=== PATIENT | female | born 1950 ===

== ENCOUNTER 2017-09-03 19:18 | Inpatient (IN) | payer MEDICARE ==
[2017-09-03] MEDS ORDERED: Ciprofloxacin 400mg/200ml D5W 400 MG/200 ML BAG IVPB STA (19:53)
[2017-09-03] MEDS ORDERED: Sodium Chloride 0.9% 1,000 ML IV ONE (19:53)
[2017-09-03] MEDS ORDERED: metroNIDAZOLE IV 500 mg/100 ml 500 MG/100 ML BAG IVPB STA (19:53)
--- NOTE | 2017-09-03 19:53 | C.PDOC ---
History Of Present Illness 67 y/o female presents to the ED complaining of abdominal pain, on and off for 1 month. No associated fever or chills. Pain is described as crampy, rated 4/ 10. Denies any vomiting or diarrhea. Of note, patient had a CT scan done earlier today and was referred to the ED by PMD due to findings. Time Seen by Provider: 09/03/17 19:50 Chief Complaint (Nursing): Abdominal Pain History Per: Patient History/Exam Limitations: no limitations Onset/Duration Of Symptoms: Intermittent Episodes Current Symptoms Are (Timing): Still Present Context: Other Severity: Mild Pain Scale Rating Of: 4 Location Of Pain/Discomfort: Epigastric Radiation Of Pain To:: None Quality Of Discomfort: Cramping Exacerbating Factors: None Alleviating Factors: None Last Bowel Movement: Yesterday Recent travel outside of the [place]: No Additional History Per: Family Abnormal Vaginal Bleeding: No Past Medical History Reviewed: Historical Data, Nursing Documentation, Vital Signs Vital Signs: Last Vital Signs Temp 98.3 F 09/03/17 19:34 Pulse 77 09/03/17 19:34 Resp 20 09/03/17 19:34 BP 112/74 09/03/17 19:34 Pulse Ox 98 09/03/17 21:08 - Medical History PMH: Asthma Other PMH: peripheral vascular disease Family History: States: No Known Family Hx - Social History Hx Tobacco Use: No Hx Alcohol Use: No Hx Substance Use: No - Immunization History Hx Tetanus Toxoid Vaccination: No Hx Influenza Vaccination: No Hx Pneumococcal Vaccination: No Review Of Systems Constitutional: Negative for: Fever, Chills Gastrointestinal: Positive for: Abdominal Pain Physical Exam - Physical Exam Appears: Non-toxic, No Acute Distress Skin: Warm, Dry Head: Normacephalic Eye(s): bilateral: Normal Inspection Oral Mucosa: Moist Neck: Trachea Midline, Supple Chest: Symmetrical Cardiovascular: Rhythm Regular Respiratory: No Rales, No Rhonchi, No Wheezing Gastrointestinal/Abdominal: Soft, Tenderness (moderate mid-epigastric diffuse tenderness), No Distention, No Guarding, No Rebound Back: Normal Inspection Extremity: Normal ROM Extremity: Bilateral: Atraumatic, Normal Color And Temperature, Normal ROM Pulses: Left Dorsalis Pedis: Normal, Right Dorsalis Pedis: Normal Neurological/Psych: Oriented x3 Gait: Steady ED Course And Treatment - Laboratory Results Result Diagrams: 09/03/17 20:13 09/03/17 20:13 ECG: Interpreted By Me, Viewed By Me ECG Rhythm: Sinus Rhythm (73), Nonspecific Changes O2 Sat by Pulse Oximetry: 98 Pulse Ox Interpretation: Normal Progress Note: Patient had CT scan w/ contrast today showing acute diverticulitis with moderate perforation. Case discussed with Dr. Flores, patient will be admitted Disposition Discussed With Dr.: Reggie Flores Comment: accepted the pt on his service and took over the care at 8 PM Doctor Will See Patient In The: ED Counseled Patient/Family Regarding: Studies Performed, Diagnosis - Disposition Disposition: HOSPITALIZED Disposition Time: 19:51 Condition: FAIR Forms: [employer] (Faroese) - POA Present On Arrival: None - Clinical Impression Clinical Impression: Abdominal pain, Diverticulitis - Scribe Statement The provider has reviewed the documentation as recorded by the Scribe (Jen Hopper) Provider Attestation: All medical record entries made by the Scribe were at my direction and personally dictated by me. I have reviewed the chart and agree that the record accurately reflects my personal performance of the history, physical exam, medical decision making, and the department course for this patient. I have also personally directed, reviewed, and agree with the discharge instructions and disposition. Decision To Admit - Pt Status Changed To: Hospital Disposition Of: Inpatient - Admit Certification Admit to Inpatient:: After my assessment, the patient will require hospitalization for at least two midnights. This is because of the severity of symptoms shown, intensity of services needed, and/or the medical risk in this patient being treated as an outpatient. - InPatient: Physician Admission Certification:: After my assessment, the patient will require hospitalization for at least two midnights. This is because of the severity of symptoms shown, intensity of services needed, and/or the medical risk in this patient being treated as an outpatient. - . Bed Request Type: Regular Admitting Physician: Reggie Flores Patient Diagnosis: Abdominal pain, Diverticulitis
[2017-09-03 20:17] LABS: BASO # 0.1 K/uL (0.0-0.2); BASO % 1.2 % (0.0-2.0); EOS # 0.8 K/uL (0.0-0.7); EOS % 9.7 % (0.0-4.0); HEMOGLOBIN 12.2 g/dL (11.0-16.0); LYMPH # 1.7 K/uL (1.0-4.3); MEAN CELL VOLUME 89.6 fL (81.0-99.0); MEAN CORPUSCULAR HEMOGLOBIN 30.8 pg (27.0-31.0); MEAN CORPUSCULAR HGB CONC 34.4 g/dL (33.0-37.0); MEAN PLATELET VOLUME 7.8 fL (7.2-11.7); MONO # 0.8 K/uL (0.0-0.8); MONO % 8.9 % (0.0-10.0); NEUT # 5.2 K/uL (1.8-7.0); NEUT % 60.2 % (50.0-75.0); NRBC % 0.1 % (0.0-2.0); RBC 3.95 Mil/uL (3.80-5.20); RED CELL DISTRIBUTION WIDTH 12.8 % (11.5-14.5); WHITE BLOOD COUNT 8.7 K/uL (4.8-10.8)
[2017-09-03 20:25] LABS: INR 1.1; PROTHROMBIN TIME 12.2 SECONDS (9.7-12.2)
[2017-09-03 20:29] LABS: ALB/GLOB RATIO 1.1 (1.0-2.1); ALBUMIN 3.8 g/dL (3.5-5.0); ALT/SGPT 26 U/L (9-52); AST/SGOT 29 U/L (14-36); BLOOD UREA NITROGEN 10 mg/dL (7-17); CALCIUM 9.1 mg/dl (8.6-10.4); GFR AFRICAN-AMERICAN > 60; GFR NON-AFRICAN AMERICAN > 60; LIPASE 57 U/L (23-300)
[2017-09-03] MEDS ORDERED: metroNIDAZOLE IV 500 mg/100 ml 500 MG/100 ML BAG ONE (20:30)
[2017-09-03] MEDS ORDERED: Oxycodone/Acetaminophen 5/325 mg Tab PO PRN (21:23)
[2017-09-03] MEDS ORDERED: Ciprofloxacin 400mg/200ml D5W 400 MG/200 ML BAG IVPB ONE (21:38)
[2017-09-03] MEDS ORDERED: metroNIDAZOLE IV 500 mg/100 ml 500 MG/100 ML BAG IVPB SCH (22:00)
[2017-09-03] MEDS: Clindamycin 300 MG in Sodium Chloride 0.9% 50 ML IVPB SCH (22:29)
[2017-09-03 23:19] LABS: SQUAMOUS EPITHIAL 5 /hpf (0-5); URINE BILIRUBIN NEGATIVE (NEGATIVE); URINE BLOOD NEGATIVE (NEGATIVE); URINE CLARITY Clear (Clear); URINE COLOR Yellow (YELLOW); URINE GLUCOSE (UA) NORMAL (Normal); URINE LEUKOCYTE ESTERASE 3+ Leu/uL (Negative); URINE PROTEIN NEGATIVE (NEGATIVE); URINE UROBILINOGEN NORMAL mg/dL (0.2-1.0)
[2017-09-04 00:08] VITALS: RESP 20
[2017-09-04] MEDS: Clindamycin 300 MG in Sodium Chloride 0.9% 50 ML IVPB SCH (05:39)
[2017-09-04 07:38] LABS: ALB/GLOB RATIO 1.1 (1.0-2.1); ALBUMIN 3.4 g/dL (3.5-5.0); ALT/SGPT 15 U/L (9-52); AST/SGOT 27 U/L (14-36); BLOOD UREA NITROGEN 8 mg/dL (7-17); CALCIUM 8.1 mg/dl (8.6-10.4); GFR AFRICAN-AMERICAN > 60; GFR NON-AFRICAN AMERICAN > 60; LIPASE 46 U/L (23-300)
[2017-09-04 07:43] LABS: BASO # 0.1 K/uL (0.0-0.2); EOS # 0.8 K/uL (0.0-0.7); EOS % 11.3 % (0.0-4.0); HEMOGLOBIN 10.9 g/dL (11.0-16.0); LYMPH # 1.2 K/uL (1.0-4.3); LYMPH % 16.4 % (20.0-40.0); MEAN CELL VOLUME 89.9 fL (81.0-99.0); MEAN CORPUSCULAR HEMOGLOBIN 30.6 pg (27.0-31.0); MEAN CORPUSCULAR HGB CONC 34.1 g/dL (33.0-37.0); MEAN PLATELET VOLUME 8.2 fL (7.2-11.7); MONO # 0.7 K/uL (0.0-0.8); MONO % 9.9 % (0.0-10.0); NEUT # 4.5 K/uL (1.8-7.0); NEUT % 61.4 % (50.0-75.0); NRBC % 0.1 % (0.0-2.0); RBC 3.54 Mil/uL (3.80-5.20); WHITE BLOOD COUNT 7.3 K/uL (4.8-10.8)
--- NOTE | 2017-09-04 07:56 | RAD ---
HISTORY: Diverticulosis COMPARISON: None TECHNIQUE: Chest PA and lateral FINDINGS: LUNGS: No focal consolidation is seen. PLEURA: No pleural effusion is identified. CARDIOVASCULAR: Heart size is within normal limits. OSSEOUS STRUCTURES: Degenerative changes noted of the spine. Mild hypertrophic degenerative changes noted left acromioclavicular joint. VISUALIZED UPPER ABDOMEN: Unremarkable. OTHER FINDINGS: None. IMPRESSION: No acute cardiopulmonary process seen.
[2017-09-04] MEDS: Pantoprazole 40 mg EC Tab PO SCH (09:43)
[2017-09-04] MEDS ORDERED: POTASSIUM CH IV SCH (10:00)
[2017-09-04] MEDS ORDERED: D5 IV SCH (10:00)
[2017-09-04] MEDS ORDERED: [UNRECOGNIZED DRUG - OTHER] IV SCH (10:00)
[2017-09-04] MEDS ORDERED: D5 IV ONE (10:00)
[2017-09-04] MEDS ORDERED: [UNRECOGNIZED DRUG - OTHER] IV ONE (10:00)
[2017-09-04] MEDS ORDERED: POTASSIUM CH IV ONE (10:00)
[2017-09-04] MEDS ORDERED: Potassium Ch 20mEq in D5-1/2NS 1,000 ML IV ONE (10:30)
--- NOTE | 2017-09-04 11:31 | CP.PCM.CON ---
History of Present Illness - History of Present Illness History of Present Illness: INFECTIOUS DISEASE CONSULT; HPI: 67 y/o female presents to the ED complaining of abdominal pain, on and off for 1 month. No associated fever or chills. Pain is described as crampy, rated 4/ 10. Denies any vomiting or diarrhea. Of note, patient had a CT scan done earlier today and was referred to the ED by PMD due to findings. CT ABDOMEN /PELVIS SHOWED ACUTE DIVERTICULITIS/MODERATE PERFORATION. PT ALLERGIC TO PCN AND STARTED ON IV CLEOCIN BY PMD INFECTIOUS DSEASE CONSULT REQUESTED BY DR JONES FOR ACUTE DIVERTICULITIS/ AND MODERATE PERFORATON PMH: Asthma Other PMH: peripheral vascular disease Family History: States: No Known Family Hx - Social History Hx Tobacco Use: No Hx Alcohol Use: No Hx Substance Use: No - Immunization History Hx Tetanus Toxoid Vaccination: No Hx Influenza Vaccination: No Hx Pneumococcal Vaccination: No. ALLERGY; PENCILLIN. Review of Systems - Constitutional Constitutional: absent: Chills, Fever - EENT Eyes: absent: Change in Vision, Floaters, Photophobia Nose/Mouth/Throat: absent: Mouth Lesions, Odynophagia - Cardiovascular Cardiovascular: absent: Chest Pain, Leg Edema - Respiratory Respiratory: absent: Cough - Gastrointestinal Gastrointestinal: Abdominal Pain, Constipation. absent: Heartburn, Melena, Vomiting - Genitourinary Genitourinary: absent: Difficulty Urinating, Freq UTI - Neurological Neurological: absent: Headaches - Hematologic/Lymphatic Hematologic: As Per HPI. absent: Easy Bleeding, Easy Bruising, Lymphadenopathy Past Patient History - Past Social History Smoking Status: Never Smoked - CARDIAC Hx Peripheral Vascular Disease: Yes - PULMONARY Hx Asthma: Yes - MUSCULOSKELETAL/RHEUMATOLOGICAL Hx Falls: No - PSYCHIATRIC Hx Substance Use: No Meds Allergies/Adverse Reactions: Allergies Allergy/AdvReac Type Severity Reaction Status Date / Time Penicillins Allergy Verified 09/03/17 19:38 - Medications Medications: Current Medications Albuterol/Ipratropium (Duoneb 3 Mg/0.5 Mg (3 Ml) Ud) 3 ml INH RQ6 PRN PRN Reason: Shortness of Breath Heparin Sodium (Porcine) (Heparin) 5,000 units SC Q12 [facility] Last Admin: 09/04/17 09:42 Dose: 5,000 units Clindamycin Phosphate 300 mg/ (Sodium Chloride) 52 mls @ 104 mls/hr IVPB Q8 [facility] PRN Reason: Protocol Last Admin: 09/04/17 05:39 Dose: 104 mls/hr Potassium Chloride/Dextrose/Sod Cl (Potassium Chl 20 Meq In D5-1/2ns) 1,000 mls @ 100 mls/hr IV .Q10H ONE Stop: 09/04/17 20:29 Last Admin: 09/04/17 10:37 Dose: 100 mls/hr Montelukast Sodium (Singulair) 10 mg PO HS [facility] Last Admin: 09/03/17 22:00 Dose: 10 mg Oxycodone/Acetaminophen (Percocet 5/325 Mg Tab) 1 tab PO Q6H PRN PRN Reason: Pain, severe (8-10) Stop: 09/06/17 21:24 Pantoprazole Sodium (Protonix Ec Tab) 40 mg PO DAILY [facility] Last Admin: 09/04/17 09:43 Dose: 40 mg Physical Exam - Constitutional Appears: No Acute Distress - Head Exam Head Exam: NORMAL INSPECTION - Eye Exam Eye Exam: EOMI, PERRL. absent: Scleral icterus - ENT Exam ENT Exam: Normal Oropharynx - Neck Exam Neck exam: Positive for: Normal Inspection - Respiratory Exam Respiratory Exam: Clear to Auscultation Bilateral - Cardiovascular Exam Cardiovascular Exam: REGULAR RHYTHM, +S1, +S2 - GI/Abdominal Exam GI & Abdominal Exam: Distended (MILDLY), Hypoactive Bowel Sounds, Soft. absent : Firm - Extremities Exam Extremities exam: Positive for: pedal pulses present. Negative for: calf tenderness, pedal edema - Neurological Exam Neurological exam: Alert, CN II-XII Intact, Oriented x3, Reflexes Normal - Psychiatric Exam Psychiatric exam: Normal Mood - Skin Skin Exam: Normal Color, Warm Results - Vital Signs Recent Vital Signs: Last Vital Signs Temp 98.1 F 09/04/17 07:00 Pulse 74 09/04/17 07:00 Resp 20 09/04/17 07:00 BP 103/65 09/04/17 07:00 Pulse Ox 98 09/04/17 07:00 - Labs Result Diagrams: 09/04/17 07:04 09/04/17 07:04 Labs: Laboratory Results - last 24 hr 09/03/17 09/03/17 09/03/17 20:13 20:13 20:13 WBC 8.7 RBC 3.95 Hgb 12.2 Hct 35.4 MCV 89.6 MCH 30.8 MCHC 34.4 RDW 12.8 Plt Count 349 MPV 7.8 Neut % (Auto) 60.2 Lymph % (Auto) 20.0 Sabine % (Auto) 8.9 Eos % (Auto) 9.7 H Baso % (Auto) 1.2 Neut # (Auto) 5.2 Lymph # (Auto) 1.7 Sabine # (Auto) 0.8 Eos # (Auto) 0.8 H Baso # (Auto) 0.1 PT 12.2 INR 1.1 APTT 37 H Sodium 145 Potassium 3.4 L Chloride 104 Carbon Dioxide 31 H Anion Gap 14 BUN 10 Creatinine 0.6 L Est GFR ( Amer) > 60 Est GFR (Non-Af Amer) > 60 Random Glucose 88 Calcium 9.1 Total Bilirubin 0.4 AST 29 ALT 26 Alkaline Phosphatase 103 Total Protein 7.2 Albumin 3.8 Globulin 3.4 Albumin/Globulin Ratio 1.1 Lipase 57 Urine Color Urine Clarity Urine pH Ur Specific Tolar Urine Protein Urine Glucose (UA) Urine Ketones Urine Blood Urine Nitrate Urine Bilirubin Urine Urobilinogen Ur Leukocyte Esterase Urine WBC (Auto) Urine RBC (Auto) Ur Squamous Epith Cells 09/03/17 09/04/17 09/04/17 23:02 07:04 07:04 WBC 7.3 RBC 3.54 L Hgb 10.9 L Hct 31.8 L MCV 89.9 MCH 30.6 MCHC 34.1 RDW 13.0 Plt Count 296 MPV 8.2 Neut % (Auto) 61.4 Lymph % (Auto) 16.4 L Sabine % (Auto) 9.9 Eos % (Auto) 11.3 H Baso % (Auto) 1.0 Neut # (Auto) 4.5 Lymph # (Auto) 1.2 Sabine # (Auto) 0.7 Eos # (Auto) 0.8 H Baso # (Auto) 0.1 PT INR APTT Sodium 143 Potassium 3.7 Chloride 110 H Carbon Dioxide 26 Anion Gap 11 BUN 8 Creatinine 0.6 L Est GFR ( Amer) > 60 Est GFR (Non-Af Amer) > 60 Random Glucose 79 Calcium 8.1 L Total Bilirubin 0.3 AST 27 ALT 15 Alkaline Phosphatase 83 Total Protein 6.4 Albumin 3.4 L Globulin 3.0 Albumin/Globulin Ratio 1.1 Lipase 46 Urine Color Yellow Urine Clarity Clear Urine pH 6.0 Ur Specific Tolar 1.019 Urine Protein Negative Urine Glucose (UA) Normal Urine Ketones Negative Urine Blood Negative Urine Nitrate Negative Urine Bilirubin Negative Urine Urobilinogen Normal Ur Leukocyte Esterase 3+ H Urine WBC (Auto) 34 H Urine RBC (Auto) < 1 Ur Squamous Epith Cells 5 - Imaging and Cardiology Chest x-ray Status: Report reviewed by me (NAD.) Assessment & Plan (1) Abdominal pain Status: Acute (2) Diverticulitis Assessment and Plan: PANCULTURE. DC IV CLEOCIN. START IV AZACTAM 1GM IVPB Q 8HRLY . 09/04/17. ADD FLAGYL 500MG IVPB Q 8HRLY 09/04/17. ADD IV VANCOMYCIN 1.25GM IVPB Q 24HRLY 09/04/17 NPO PER PMD. WILL TRY TO GET CT ABDOMEN AND PELVIS REPORT .OFFICIAL. Status: Acute
[2017-09-04] MEDS: metroNIDAZOLE IV 500 mg/100 ml 500 MG/100 ML BAG IVPB SCH ×2 (12:26→21:00)
[2017-09-04] MEDS: Aztreonam 1 GM in Sodium Chloride 0.9% 100 ML IVPB SCH ×2 (13:00→20:25)
--- NOTE | 2017-09-04 14:40 | CARD ---
APPROVED REPORT EKG Measurement Heart [id number] <Conclusion> Normal sinus rhythm Incomplete right bundle branch block Possible Inferior infarct, age undetermined Abnormal ECG
[2017-09-04] MEDS: Albuterol-Ipratrop 3 mg / 0.5 (3 ml) UD INH PRN (16:45)
[2017-09-04] MEDS: guaiFENesin DM 100 mg-10 mg/5 ml UD PO PRN (21:33)
[2017-09-05] MEDS: metroNIDAZOLE IV 500 mg/100 ml 500 MG/100 ML BAG IVPB SCH ×3 (03:00→21:17)
[2017-09-05] MEDS: Aztreonam 1 GM in Sodium Chloride 0.9% 100 ML IVPB SCH ×3 (03:00→22:45)
--- NOTE | 2017-09-05 06:56 | HP ---
HISTORY OF PRESENT ILLNESS: The patient is a 66-year-old female with history of asthma, hypertension, and patient was seen by me a week ago, and was complaining of some abdominal pain, mainly in the left side of the abdomen in the left lower quadrant. Also, the patient was complaining of anorexia. The patient was evaluated, and was sent the patient to have a CAT scan done. However, the patient has delayed to do the CAT scan due to some personal problems. So, yesterday, the patient has received the result of CAT scan which has demonstrated that the patient had an acute diverticulitis and also some perforations with no enough fluid for drainage as per the CAT scan, so the patient was called and advised to go to the emergency room for admission which the patient had done, and I have to look into and refer the ER physician. The patient was admitted immediately. ALLERGIES: THE PATIENT IS ALLERGIC TO PENICILLIN. MEDICATION: The patient was on medication like Montelukast, and also, the patient was on Cipro and Flagyl p.o., and also the patient was on albuterol nebulizer. SOCIAL HISTORY: The patient has no history of smoking or alcohol abuse, and the patient is , lives with her . FAMILY HISTORY: The patient has no inherited disease. REVIEW OF SYSTEMS: Respiratory system: The patient is complaining of positive cough with yellowish sputum. Cardiovascular: Denies any chest pain. GI: The patient is complaining of left lower quadrant pain and anorexia. : The patient denied any dysuria. Neurologic: The patient is somewhat weak. PHYSICAL EXAMINATION: GENERAL: The patient is alert and awake and oriented x3. VITAL SIGNS: In admission, the patient has blood pressure of 162/88, pulse is 85, respirations 20, temperature 97.9. NECK: Supple. HEAD: Normocephalic, atraumatic. LUNGS: Rales and wheezing noted. HEART: Regular rate and rhythm. ABDOMEN: Soft, but there is tenderness in the left lower quadrant of the abdomen and positive bowel sounds. EXTREMITIES: There is no edema. No tenderness. The patient had tests done. As I mentioned, the patient has a CAT scan that was done earlier that does reveal early diverticulitis of the sigmoid, and the chest x-ray done shows no acute cardiopulmonary process. The patient will be admitted with diagnosis of, 1. Acute diverticulitis. 2. Asthma. 3. Hypertension. 4. Obesity. 5. The patient is having consult with CORAZON Bains. So, the plan is that we are going to put the patient on IV clindamycin and also on IV Flagyl, and also patient will be on albuterol nebulizer and Singulair. The case was discussed and reviewed with FREDERIC Herrmann, the nurse practitioner. Reggie Flores MD
[2017-09-05 07:41] LABS: HEMOGLOBIN 11.3 g/dL (11.0-16.0); MEAN CELL VOLUME 90.1 fL (81.0-99.0); MEAN CORPUSCULAR HEMOGLOBIN 31.2 pg (27.0-31.0); MEAN CORPUSCULAR HGB CONC 34.6 g/dL (33.0-37.0); MEAN PLATELET VOLUME 8.1 fL (7.2-11.7); RBC 3.62 Mil/uL (3.80-5.20); RED CELL DISTRIBUTION WIDTH 12.7 % (11.5-14.5); WHITE BLOOD COUNT 5.4 K/uL (4.8-10.8)
[2017-09-05 07:58] LABS: BLOOD UREA NITROGEN 5 mg/dL (7-17); CALCIUM 8.3 mg/dl (8.6-10.4); GFR AFRICAN-AMERICAN > 60; GFR NON-AFRICAN AMERICAN > 60
[2017-09-05] MEDS: guaiFENesin DM 100 mg-10 mg/5 ml UD PO PRN (08:09)
[2017-09-05] MEDS: Albuterol-Ipratrop 3 mg / 0.5 (3 ml) UD INH PRN ×3 (08:11→20:13)
[2017-09-05] MEDS: Pantoprazole 40 mg EC Tab PO SCH (10:08)
[2017-09-05] MEDS ORDERED: Promethazine/Cod 6.25mg-10mg/5ml Syr UD PO PRN (11:28)
[2017-09-05] MEDS: Promethazine/Cod 6.25mg-10mg/5ml Syr UD PO SCH ×2 (13:25→21:16)
--- NOTE | 2017-09-05 13:34 | VASCLAB ---
PROCEDURE: Lower Extremity Venous Duplex Exam. HISTORY: r/o DVT PRIORS: None. TECHNIQUE: Bilateral common femoral, femoral, popliteal and posterior tibial, peroneal and great saphenous veins were evaluated. Flow was assessed with color Doppler, compressibility, assessment of phasic flow and augmentation response. Report prepared by Sundeep Eckert, LOUISE, RVT FINDINGS: RIGHT: 1. Common Femoral Vein: 1.1. Compressibility - Fully compressible: Thrombus - None : Flow - Phasic: Augmentation -Normal: Reflux - None. 2. Femoral Vein: 2.1. Compressibility - Fully compressible: Thrombus - None : Flow - Phasic: Augmentation -Normal: Reflux - None. 3. Popliteal Vein: 3.1. Compressibility - Fully compressible: Thrombus - None : Flow - Phasic: Augmentation -Normal: Reflux - None. 4. Posterior Tibial Vein: 4.1. Compressibility - Fully compressible: Thrombus - None: Flow - Phasic: Augmentation -Normal: Reflux - None. 5. Peroneal Vein: 5.1. Compressibility - Fully compressible: Thrombus - None: Flow - Phasic: Augmentation -Normal: Reflux - None. 6. Great Saphenous Vein: 6.1. Compressibility - Fully compressible: Thrombus - None: Flow - Phasic: Augmentation - Normal: Reflux - None. LEFT: 1. Common Femoral Vein: 1.1. Compressibility - Fully compressible: Thrombus - None: Flow - Phasic: Augmentation -Normal: Reflux - None. 2. Femoral Vein: 2.1. Compressibility - Fully compressible: Thrombus - None: Flow - Phasic: Augmentation -Normal: Reflux - None. 3. Popliteal Vein: 3.1. Compressibility - Fully compressible: Thrombus - None : Flow - Phasic: Augmentation -Normal: Reflux - None. 4. Posterior Tibial Vein: 4.1. Compressibility - Fully compressible: Thrombus - None: Flow - Phasic: Augmentation -Normal: Reflux - None. 5. Peroneal Vein: 5.1. Compressibility - Fully compressible: Thrombus - None: Flow - Phasic: Augmentation -Normal: Reflux - None. 6. Great Saphenous Vein: 6.1. Compressibility - Fully compressible: Thrombus - None: Flow - Phasic: Augmentation - Normal: Reflux - None. OTHER FINDINGS: Right: None significant. Left: None significant. IMPRESSION: Right: No evidence of deep or superficial vein thrombosis of the right lower extremity. Normal valve function noted of the right side. Left: No evidence of deep or superficial vein thrombosis of the left lower extremity. Normal valve function noted of the left side.
--- NOTE | 2017-09-05 23:29 | CP.PCM.PN ---
Subjective - Date & Time of Evaluation Date of Evaluation: 09/05/17 Time of Evaluation: 23:29 - Subjective Subjective: CHIEF COMPLAINTS TODAY : AFEBRILE, ABDOMINAL PAIN IMPROVING FEELING SLIGHTLY BETTER. ROS. HEENT : N. Resp : No cough, wheezing ,pleuritic CP ,or hemoptysis Cardio : No anginal CP, PND, orthopnea, palpitation GI : +VE abd.pain, n/v ,diarrhea or GI bleeding . PRECISION HONER : No headache, vertigo, focal deficit. Musculoskel : No joint swelling , Derm : No rash Psych : Normal affect. Ext : No swelling ,calf pain PE. Pt. is alert awake in no distress. V.S As noted in the chart Head ,ear nose,throat and eyes : Normal. Neck : Supple with normal carotids. Lungs: Clear air entry. Heart : S1 & S2 normal with S4. No murmur. Abd : Soft non tender with normal bowel sounds. Neuro : Moves all ext. with no localized deficit. Ext : No edema with intact pulses.Non tender calves Derm : No rashes or decubitus ulcer. LABS/RADIOLOGY: REVIEWED ASSESSMENT. ABDOMINAL PAIN DIVERTICULITIS. MICRO-PERFORATION /PLAN : CONTINUE TO OBSERVE. CONTINUE IV ABX. Objective - Vital Signs/Intake and Output Vital Signs (last 24 hours): Temp Pulse Resp BP Pulse Ox 98.4 F 77 20 104/65 97 09/05/17 15:59 09/05/17 15:59 09/05/17 15:59 09/05/17 15:59 09/05/17 15:59 Intake and Output: 09/05/17 09/06/17 18:59 06:59 Intake Total 400 Balance 400 - Medications Medications: Current Medications Albuterol/Ipratropium (Duoneb 3 Mg/0.5 Mg (3 Ml) Ud) 3 ml INH RQ6 PRN PRN Reason: Shortness of Breath Last Admin: 09/05/17 20:13 Dose: 3 ml Heparin Sodium (Porcine) (Heparin) 5,000 units SC Q12 [facility] Last Admin: 09/05/17 21:16 Dose: 5,000 units Aztreonam 1 gm/ Sodium (Chloride) 100 mls @ 100 mls/hr IVPB Q8H [facility] PRN Reason: Protocol Last Admin: 09/05/17 22:45 Dose: 100 mls/hr Metronidazole (Flagyl) 500 mg in 100 mls @ 100 mls/hr IVPB Q8H [facility] PRN Reason: Protocol Last Admin: 09/05/17 21:17 Dose: 100 mls/hr Vancomycin HCl 1.25 gm/ Sodium (Chloride) 250 mls @ 120 mls/hr IVPB Q24H [facility] PRN Reason: Protocol Last Admin: 09/05/17 18:49 Dose: 120 mls/hr Montelukast Sodium (Singulair) 10 mg PO HS [facility] Last Admin: 09/05/17 21:16 Dose: 10 mg Oxycodone/Acetaminophen (Percocet 5/325 Mg Tab) 1 tab PO Q6H PRN PRN Reason: Pain, severe (8-10) Stop: 09/06/17 21:24 Pantoprazole Sodium (Protonix Ec Tab) 40 mg PO DAILY [facility] Last Admin: 09/05/17 10:08 Dose: 40 mg Promethazine HCl/Codeine (Phenergan/Codeine Oral Syrup) 5 ml PO Q8 [facility] Last Admin: 09/05/17 21:16 Dose: 5 ml - Labs Labs: 09/05/17 07:31 09/05/17 07:31 PT 12.2 SECONDS (9.7-12.2) 09/03/17 20:13 INR 1.1 09/03/17 20:13 APTT 37 SECONDS (21-34) H 09/03/17 20:13 Assessment and Plan (1) Abdominal pain Status: Acute (2) Diverticulitis Status: Acute
--- NOTE | 2017-09-06 02:38 | PN ---
DATE: 09/05/2017 SUBJECTIVE: Today, the patient is alert and awake. Denies any abdominal pain today. Complaining of pain to the lower extremities and denies any shortness of breath; however, the patient is still complaining of a cough. PHYSICAL EXAMINATION: VITAL SIGNS: The patient has blood pressure of 104/65, pulse 77, respirations 20, temperature 98.4. NECK: Supple. No JVD. LUNGS: Has some rhonchi noted. HEART: Regular rate and rhythm. ABDOMEN: Soft, minimal tenderness in the left lower quadrant . EXTREMITIES: There is some mild tenderness to the calf in the popliteal area. LABORATORY DATA: The patient's blood work showed that the WBC is 5.4, hemoglobin 11.3, hematocrit 33.6, platelets 273. Chemistry showed sodium 146, potassium 4.1, chloride 108, bicarb is 28, BUN 5, creatinine is 0.6, glucose is 79, calcium 8.3. PLAN: We are going to do a venous Doppler of the lower extremity, we shall have this done this afternoon. The patient being seen early this morning and the venous Doppler failed to reveal any DVTs of both lower extremities. So the plan is that we are going to continue the antibiotic therapy today and we will proceed with possibility of discharge in the morning. So, the case was reviewed and discussed with Anayeli Bowden, the nurse practitioner. Reggie Flores MD
[2017-09-06] MEDS: Aztreonam 1 GM in Sodium Chloride 0.9% 100 ML IVPB SCH ×2 (03:46→11:53)
[2017-09-06] MEDS: metroNIDAZOLE IV 500 mg/100 ml 500 MG/100 ML BAG IVPB SCH ×2 (04:49→11:04)
[2017-09-06] MEDS: Promethazine/Cod 6.25mg-10mg/5ml Syr UD PO SCH ×2 (05:38→13:42)
[2017-09-06] MEDS: Albuterol-Ipratrop 3 mg / 0.5 (3 ml) UD INH PRN ×2 (07:25→13:31)
[2017-09-06 07:28] LABS: BASO # 0.1 K/uL (0.0-0.2); BASO % 1.1 % (0.0-2.0); EOS # 0.7 K/uL (0.0-0.7); EOS % 11.6 % (0.0-4.0); HEMOGLOBIN 11.4 g/dL (11.0-16.0); LYMPH # 1.2 K/uL (1.0-4.3); LYMPH % 20.5 % (20.0-40.0); MEAN CELL VOLUME 90.7 fL (81.0-99.0); MEAN CORPUSCULAR HEMOGLOBIN 31.2 pg (27.0-31.0); MEAN CORPUSCULAR HGB CONC 34.4 g/dL (33.0-37.0); MEAN PLATELET VOLUME 8.2 fL (7.2-11.7); MONO # 0.6 K/uL (0.0-0.8); MONO % 10.6 % (0.0-10.0); NEUT # 3.2 K/uL (1.8-7.0); NEUT % 56.2 % (50.0-75.0); NRBC % 0.1 % (0.0-2.0); RBC 3.64 Mil/uL (3.80-5.20); RED CELL DISTRIBUTION WIDTH 13.1 % (11.5-14.5); WHITE BLOOD COUNT 5.8 K/uL (4.8-10.8)
[2017-09-06 07:35] VITALS: O2SAT 96
[2017-09-06 07:46] LABS: BLOOD UREA NITROGEN 8 mg/dL (7-17); CALCIUM 7.7 mg/dl (8.6-10.4); GFR AFRICAN-AMERICAN > 60; GFR NON-AFRICAN AMERICAN > 60
[2017-09-06] MEDS: Pantoprazole 40 mg EC Tab PO SCH (09:13)
[2017-09-06 12:11] LABS: B-TYPE NATRIURETIC PEPTIDE 107 pg/mL (0-900)
--- NOTE | 2017-09-06 15:23 | RAD ---
HISTORY: sob COMPARISON: Chest radiographs 09/03/2017. FINDINGS: LUNGS: Diminished inspiratory effort. No acute infiltrate bilaterally. PLEURA: No significant pleural effusion identified, no pneumothorax apparent. CARDIOVASCULAR: Normal. OSSEOUS STRUCTURES: No significant abnormalities. VISUALIZED UPPER ABDOMEN: Normal. OTHER FINDINGS: None. IMPRESSION: Diminished inspiratory volume with exam otherwise unremarkable and stable in the interval.
--- NOTE | 2017-09-06 15:54 | CP.PCM.PN ---
Subjective - Date & Time of Evaluation Date of Evaluation: 09/06/17 Time of Evaluation: 11:35 - Subjective Subjective: GENERAL MERCHANDISE SALESPERSON NOTES patient seen today with Dr. Flores a febrile CXR- Diminished inspiratory volume with exam otherwise unremarkable and stable in the interval. BNP- 107 blood culture - negative D/w Dr. Flores , stable for discharge home today and continue 10 days of antibiotics and f/u with Dr. Flores office in 1 week discharge plan discussed with patent, who understands and and agrees with plan Patient encouraged to use IS q 2 hr Objective - Vital Signs/Intake and Output Vital Signs (last 24 hours): Temp Pulse Resp BP Pulse Ox 98.3 F 73 20 100/55 L 96 09/06/17 07:05 09/06/17 07:05 09/06/17 07:05 09/06/17 07:05 09/06/17 07:05 - Medications Medications: Current Medications Albuterol/Ipratropium (Duoneb 3 Mg/0.5 Mg (3 Ml) Ud) 3 ml INH RQ6 PRN PRN Reason: Shortness of Breath Last Admin: 09/06/17 13:31 Dose: 3 ml Heparin Sodium (Porcine) (Heparin) 5,000 units SC Q12 [facility] Last Admin: 09/06/17 09:13 Dose: 5,000 units Aztreonam 1 gm/ Sodium (Chloride) 100 mls @ 100 mls/hr IVPB Q8H [facility] PRN Reason: Protocol Last Admin: 09/06/17 11:53 Dose: 100 mls/hr Metronidazole (Flagyl) 500 mg in 100 mls @ 100 mls/hr IVPB Q8H [facility] PRN Reason: Protocol Last Admin: 09/06/17 11:04 Dose: 100 mls/hr Vancomycin HCl 1.25 gm/ Sodium (Chloride) 250 mls @ 120 mls/hr IVPB Q24H [facility] PRN Reason: Protocol Last Admin: 09/05/17 18:49 Dose: 120 mls/hr Montelukast Sodium (Singulair) 10 mg PO HS [facility] Last Admin: 09/05/17 21:16 Dose: 10 mg Oxycodone/Acetaminophen (Percocet 5/325 Mg Tab) 1 tab PO Q6H PRN PRN Reason: Pain, severe (8-10) Stop: 09/06/17 21:24 Pantoprazole Sodium (Protonix Ec Tab) 40 mg PO DAILY [facility] Last Admin: 09/06/17 09:13 Dose: 40 mg Promethazine HCl/Codeine (Phenergan/Codeine Oral Syrup) 5 ml PO Q8 [facility] Last Admin: 09/06/17 13:42 Dose: 5 ml - Labs Labs: 09/06/17 07:08 09/06/17 07:08 PT 12.2 SECONDS (9.7-12.2) 09/03/17 20:13 INR 1.1 09/03/17 20:13 APTT 37 SECONDS (21-34) H 09/03/17 20:13
[2017-09-06 16:12] VITALS: BP 104/65; PULSE 89; TEMP 98.8
--- NOTE | 2017-09-07 02:44 | PN ---
DATE: 09/06/2017 SUBJECTIVE: Today, the patient is alert, awake, and oriented. The patient is complaining of some cough, but the cough is decreasing. There is no shortness of breath. No palpitation. The patient has no pain to the lower extremities. PHYSICAL EXAMINATION: VITAL SIGNS: The patient has blood pressure of 100/55, pulse of 73, respirations 20, temperature is 98.3. HEENT: Head is normocephalic. NECK: Supple. LUNGS: There are some fine rales heard at the bases. HEART: Regular rate and rhythm. ABDOMEN: Soft and nontender. No palpable mass. Positive bowel sounds. EXTREMITIES: There is no edema. There is no tenderness to the calf or the knees. The patient has some GUERLINE on. LABORATORY DATA: WBC 5.8, hemoglobin 11.4, hematocrit 33, and platelets 265. Chemistry showed sodium 144, potassium 3.9, chloride 109, bicarb is 37, BUN 8, creatinine 0.6, and calcium 7.7. This morning also we have ordered a chest x-ray on the patient and we could have the final result. The chest x-ray has shown that the diminished ____ volume, and the exam otherwise unremarkable. Also, the patient had a proBNP that was 107. So at this point, the case was discussed with Anayeli Bowden, the nurse practitioner, and we considered discharging the patient to home today on medications, that is, Cipro and Flagyl and Proventil nebulizer and also Singulair. The patient will be discharged with Phenergan with codeine. In any case, the patient will come to see me in the office within one week. Reggie Flores MD
== END 2017-09-06 17:30 | disposition home or self-care (01) | DRG 392 ==
LOC: C.ER 19:18 → C.9E 21:51 → C.5S 22:44
PROVIDERS: ADMIT Specialist; ATTEND Specialist
DX: K57.20 Diverticulitis of large intestine with perforation and abscess without bleeding (principal); I10 Essential (primary) hypertension; I73.9 Peripheral vascular disease, unspecified; J45.909 Unspecified asthma, uncomplicated; Z88.0 Allergy status to penicillin